=== PATIENT | female | born 1955 | race Caucasian/White ===

== ENCOUNTER 2019-06-27 08:47 | Day surgery (SDC) | payer BC ==
[2019-06-27] MEDS ORDERED: PROPOFOL 10 MG/ML VIAL IV ONE (08:48)
[2019-06-27] MEDS ORDERED: LIDOCAINE 2% MDV (20MG/ML) 20ML VIAL IV ONE (08:48)
[2019-06-27] MEDS ORDERED: ONDANSETRON HCL IV 4 MG/2 ML VIAL IVP ONE (08:48)
--- NOTE | 2019-06-29 10:42 | Operative Note ---
OPERATION: COLONOSCOPY to the cecum with cold biopsy forceps polypectomy. INDICATION: History of adenomatous polyps in the past. The patient had multiple polyps removed 3 years ago. She returns at this time for surveillance. ANESTHESIA: Intravenous sedation was administered by the department of anesthesiology and included Diprivan titrated to effect. PROCEDURE: Following informed consent from this alert individual including a discussion of the risks and benefits of the procedure and an opportunity for the patient to ask questions, the patient was in the left lateral decubitus position. A digital rectal examination was performed. No abnormalities were noted. Following this, the Olympus ONV407 video colonoscope was inserted into the rectum without resistance. The rectal mucosa had a normal appearance with normal folds and distensibility. The sigmoid colon had a few scattered diverticula noted. The colonoscope was then farther advanced up through the colon to the level of the cecum without much difficulty. Overall, the colon preparation was good. From the base of the cecum, the colonoscope was then slowly withdrawn. In the transverse colon, there was a diminutive 3 mm polyp noted which was removed with cold biopsy forceps. No other polyps were noted throughout. Scattered diverticula were seen in the sigmoid colon. Retroflexion in the rectum revealed small internal hemorrhoids. The endoscope was straightened and removed. The patient tolerated the procedure well and was returned to the recovery area in stable condition. IMPRESSION: 1. A 3 mm transverse colon polyp removed with biopsy forceps. 2. Mild sigmoid diverticulosis. 3. Small internal hemorrhoids. RECOMMENDATIONS: The patient was advised she should receive a copy of her pathology report at home in the next 2-3 weeks. If not, she was asked to call my office to review the results of testing today. Further recommendations will be forthcoming pending those results. Followup will also be with Dr. Anderson. As always, thank you for allowing me to participate in the care of your patient. AMILCAR
== END 2019-06-27 11:25 | disposition home or self-care (01) ==
LOC: HOP 08:47
PROVIDERS: ATTEND Internal Medicine Gastroenterology
DX: Z09 Encounter for follow-up examination after completed treatment for conditions other than malignant neoplasm (principal); Z86.010 Personal history of colon polyps; D12.3 Benign neoplasm of transverse colon; K57.30 Diverticulosis of large intestine without perforation or abscess without bleeding; K64.8 Other hemorrhoids; E11.9 Type 2 diabetes mellitus without complications; I10 Essential (primary) hypertension
CPT/HCPCS: J2405